=== PATIENT | female | born 1970 ===

== ENCOUNTER 2017-11-10 17:45 | Emergency (ER) | payer MEDICAID, SELFPAY ==
[2017-11-10 17:45] VITALS: BMI 31.2
[2017-11-10 18:15] VITALS: O2SAT 100
--- NOTE | 2017-11-10 18:45 | ED PDOC ---
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 Patients admits to 3 similar episodes in the past few months that resolved spontaneously. Pain is worse when patient presses down on her chest and better with rest. Chest tightness is intermittent and she has not tried any medications for her symptoms. She also admits to urinary frequency. She denies chest pain, shortness of breath, fevers, chills, nausea, vomiting, hematuria, burning on urination, recent sickness, recent travel, numbness or tingling, back pain, abdominal pain and melena. She denies smoking and drinking history. She currently takes no medications. Translation was provided by [employer] interpretation services ([employer], [id number]). PCP is Dr. Covarrubias ([facility]) Past Medical History - Provider Review Nursing Documentation Reviewed: Yes - Infectious Disease Hx of Infectious Diseases: None - Tetanus Immunization Tetanus Immunization: Unknown - Psychiatric Hx Substance Use: No - Surgical History Hx Tubal Ligation: Yes - Anesthesia Hx Anesthesia: Yes Hx Anesthesia Reactions: No Hx Malignant Hyperthermia: No Family/Social History - Physician Review Nursing Documentation Reviewed: Yes Family/Social History: Unknown Family HX Smoking Status: Never Smoked Hx Alcohol Use: No Hx Substance Use: No Allergies/Home Meds Allergies/Adverse Reactions: Allergies No Known Allergies Allergy (Verified 11/10/17 18:12) Review of Systems - Physician Review All systems were reviewed & negative as marked: Yes - Review of Systems Constitutional: Normal. absent: Fevers Eyes: Normal. absent: Vision Changes ENT: Normal. absent: Hearing Changes Respiratory: Normal. absent: SOB, Cough Cardiovascular: Other (admits to chest tightness). absent: Chest Pain, Palpitations, Edema, Calf Pain, Syncope Gastrointestinal: Normal. absent: Abdominal Pain, Constipation, Diarrhea, Nausea, Vomiting, Hematochezia, Hematemesis Genitourinary Female: Frequency. absent: Dysuria, Hematuria Musculoskeletal: Normal. absent: Back Pain, Joint Swelling Skin: Normal Neurological: Normal. absent: Headache Psychiatric: Normal Physical Exam Vital Signs Reviewed: Yes Temperature: Afebrile Blood Pressure: Normal Pulse: Regular Respiratory Rate: Normal Appearance: Positive for: Well-Appearing, Non-Toxic, Comfortable Pain Distress: None Mental Status: Positive for: Alert and Oriented X 3 - Systems Exam Head: Present: Atraumatic, Normocephalic Pupils: Present: PERRL Extroacular Muscles: Present: EOMI Conjunctiva: Present: Normal Mouth: Present: Moist Mucous Membranes Neck: Present: Normal Range of Motion Respiratory/Chest: Present: Clear to Auscultation, Good Air Exchange. No: Respiratory Distress, Accessory Muscle Use Cardiovascular: Present: Regular Rate and Rhythm, Normal S1, S2. No: Murmurs Abdomen: No: Tenderness, Distention, Peritoneal Signs, Rebound, Guarding Back: Present: Normal Inspection Upper Extremity: Present: Normal Inspection, NORMAL PULSES. No: Cyanosis, Edema , Swelling, Erythema Lower Extremity: Present: Normal Inspection, NORMAL PULSES, Normal ROM. No: Edema, CALF TENDERNESS, Cyanosis, Tierra's Sign, Tenderness, Swelling, Erythema Neurological: Present: GCS=15, CN II-XII Intact, Speech Normal, Motor Func Grossly Intact, Normal Sensory Function Skin: Present: Warm, Dry, Normal Color. No: Rashes Psychiatric: Present: Alert, Oriented x 3, Normal Insight, Normal Concentration Vital Signs Temp Pulse Resp BP Pulse Ox 11/10/17 22:06 95 H 18 127/64 100 11/10/17 20:30 88 14 150/88 99 11/10/17 19:35 98.2 F 74 16 135/88 100 11/10/17 17:45 98.2 F 88 18 130/73 100 Medical Decision Making ED Course and Treatment: 11/10/17 19:21 A 47 year old female who presents to the emergency room today for a complain of chest discomfort which she describes as tightness. In agreement with resident note, which includes further HPI details. Patient was seen and evaluated with resident, came up with plan and treatment together. 11/10/17 20:39 Seen and examined with the resident. Her history and physical exam reveals a [place]-speaking woman complaining of intermittent chest discomfort today. No dyspnea. No diaphoresis. No dizziness. No nausea. No trauma. Her exam is unremarkable. (Tolerico,Charles) 11/10/17 18:46 Impression: This is a 47 year old female with PMH of gastritis presenting to the ER for chest tightness and cold feet that began today afternoon. Differential not limited to: angina vs UTI vs dehydration vs pericarditis vs DVT vs PE vs paroxysmal atrial fibrillation Plan: -blood work, troponin -Chest xray -d dimer, PT/PTT -U/A, culture - Progress: 11/10/17 18:51 Patient is resting comfortably, vitals are stable and afebrile. 325mg ASA givin. 11/10/17 19:12 EKG= rate of 87bpmm sinus rhythm with premature atrial complexes. MD of 144ms and QRS of 76ms. 11/10/17 20:59 Patient reports symptoms are resolved and has no current symptoms or complaints. Chest Xray: no active disease 11/10/17 22:35 Troponin is negative x2. Patient verbalizes agreement with discharge and will followup with PMD within one week. (Rosario Brady) - Lab Interpretations Lab Results: 11/10/17 18:35 11/10/17 18:35 Lab Results 11/10/17 21:52: Troponin I < 0.01 11/10/17 19:08: Urine Color Straw, Urine Appearance Clear, Urine pH 6.5, Ur Specific [place] <= 1.005, Urine Protein Negative, Urine Glucose (UA) Negative, Urine Ketones Negative, Urine Blood Trace-intact H, Urine Nitrate Negative, Urine Bilirubin Negative, Urine Urobilinogen 0.2, Ur Leukocyte Esterase Trace H , Urine RBC 0 - 2, Urine WBC 0 - 2, Ur Epithelial Cells 3 - 4, Urine Bacteria Trace, Urine HCG, Qual Negative 11/10/17 18:35: Sodium 141, Potassium 3.6, Chloride 104, Carbon Dioxide 24, Anion Gap 17, BUN 10, Creatinine 0.7, Est GFR ( Amer) > 60, Est GFR (Non- Af Amer) > 60, Random Glucose 96, Calcium 9.6, Total Bilirubin 0.9, AST 19, ALT 24, Alkaline Phosphatase 68, Troponin I < 0.01, Total Protein 8.2, Albumin 4.9 H , Globulin 3.3, Albumin/Globulin Ratio 1.5 11/10/17 18:35: PT 11.7, INR 1.03, APTT 26.8, D-Dimer, Quantitative < 200 11/10/17 18:35: WBC 10.8, RBC 4.49, Hgb 14.3, Hct 39.9, MCV 88.9, MCH 31.8, MCHC 35.8, RDW 12.3, Plt Count 275, MPV 10.4, Gran % 74.3 H, Lymph % (Auto) 20.7 L, [place] % (Auto) 4.7, Eos % (Auto) 0.1 L, Baso % (Auto) 0.2, Gran # 7.99 H , Lymph # (Auto) 2.2, [place] # (Auto) 0.5, Eos # (Auto) 0.0, Baso # (Auto) 0.02 - RAD Interpretation Radiology Orders: 11/10/17 18:32 CHEST PORTABLE [RAD] Stat - Medication Orders Current Medication Orders: Discontinued Medications Aspirin (Aspirin) 325 mg PO STAT STA Stop: 11/10/17 18:33 Last Admin: 11/10/17 18:41 Dose: 325 mg Ketorolac Tromethamine (Toradol) 15 mg IVP STAT STA Stop: 11/10/17 19:39 Last Admin: 11/10/17 19:49 Dose: Not Given Non-Admin Reason: Patient Refused MAR Pain Assessment Document 11/10/17 19:49 ROSANGELA (Rec: 11/10/17 19:50 RG [id number]) Pain Reassessment Is this a pain reassessment? Yes Sleep Is patient sleeping during reassessment? 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 MD/DO has examined the patient and agrees with the treatment plan. Disposition/Present on Arrival - Present on Arrival Any Indicators Present on Arrival: No History of DVT/PE: No History of Uncontrolled Diabetes: No Urinary Catheter: No History of Decub. Ulcer: No History Surgical Site Infection Following: None - Disposition Have Diagnosis and Disposition been Completed?: Yes Disposition Time: 22:00 Patient Plan: Discharge - Disposition Diagnosis: Chest pain Patient Problems: Current Active Problems Problem Status Onset Chest pain Acute Condition: IMPROVED Discharge Instructions (ExitCare): Chest Pain (ED) Additional Instructions: MYRTLE MCKINNEY, thank you for letting us take care of you today. Your provider was and you were treated for CHEST PAIN. The emergency medical care you received today was directed at your acute symptoms. If you were prescribed any medication, please fill it and take as directed. It may take several days for your symptoms to resolve. Return to the Emergency Department if your symptoms worsen, do not improve, or if you have any other problems. Please contact your doctor or call one of the physicians/clinics you have been referred to that are listed on the Patient Visit Information form that is included in your discharge packet. Bring any paperwork you were given at discharge with you along with any medications you are taking to your follow up visit. Our treatment cannot replace ongoing medical care by a primary care provider outside of the emergency department. Thank you for allowing the [facility] team to be part of your care today. Patient to follow up with PCP within one week. Please return to ED for any worsening symptoms including worsening chest pain. Prescriptions: Naproxen 500 mg PO Q8 PRN 7 Days #14 tab PRN Reason: Pain, Moderate (4-7) Referrals: Kathy Covarrubias DO [Primary Care Provider] - Follow up with primary
[2017-11-10 19:10] LABS: BASO # 0.02 K/mm3 (0.0-2.0); BASO % 0.2 % (0.0-3.0); D DIMER < 200 ng/mL (0-243); EOS % 0.1 % (1.5-5.0); GRAN # 7.99 (1.4-6.5); GRAN % 74.3 % (50.0-68.0); HEMOGLOBIN 14.3 g/dL (12.0-16.0); INR 1.03 (0.93-1.08); LYMPH # 2.2 (1.2-3.4); LYMPH % 20.7 % (22.0-35.0); MEAN CELL VOLUME 88.9 fl (80.0-105.0); MEAN CORPUSCULAR HEMOGLOBIN 31.8 pg (25.0-35.0); MEAN CORPUSCULAR HGB CONC 35.8 g/dl (31.0-37.0); MEAN PLATELET VOLUME 10.4 fl (7.0-11.0); MONO # 0.5 (0.1-0.6); MONO % 4.7 % (1.0-6.0); PARTIAL THROMBOPLASTIN TIME 26.8 Seconds (25.1-36.5); PROTHROMBIN TIME 11.7 SECONDS (9.4-12.5); RBC 4.49 10^6/uL (3.5-6.1); RED CELL DISTRIBUTION WIDTH 12.3 % (11.5-14.5); WHITE BLOOD COUNT 10.8 10^3/ul (4.5-11.0)
[2017-11-10 19:14] LABS: PH,URINE 6.5 (4.7-8.0); URINE APPEARANCE CLEAR (CLEAR); URINE BILIRUBIN NEGATIVE (NEGATIVE); URINE BLOOD TRACE-INTACT (NEGATIVE); URINE COLOR STRAW (YELLOW); URINE GLUCOSE (UA) NEGATIVE (NEGATIVE); URINE LEUKOCYTE ESTERASE TRACE Leu/uL (NEGATIVE); URINE PROTEIN NEGATIVE mg/dL (<30 mg/dL); URINE UROBILINOGEN 0.2 E.U./dL (<1 E.U./dL)
[2017-11-10 19:15] LABS: ALB/GLOB RATIO 1.5 (1.1-1.8); ALBUMIN 4.9 g/dL (3.0-4.8); ALT/SGPT 24 U/L (7-56); AST/SGOT 19 U/L (14-36); BLOOD UREA NITROGEN 10 mg/dL (7-21); CALCIUM 9.6 mg/dL (8.4-10.5); GFR AFRICAN-AMERICAN > 60; GFR NON-AFRICAN AMERICAN > 60
[2017-11-10 19:17] LABS: HCG,QUALITATIVE URINE NEGATIVE (NEGATIVE)
[2017-11-10 19:18] LABS: URINE BACTERIA TRACE (NEG); URINE RBC 0 - 2 /hpf (0-2); URINE WBC 0 - 2 /hpf (0-6)
[2017-11-10 19:26] LABS: TROPONIN I < 0.01 ng/mL
[2017-11-10 22:08] VITALS: BP 127/64; RESP 18
[2017-11-10 22:55] VITALS: PULSE 85; TEMP 98.3
--- NOTE | 2017-11-11 09:10 | RAD ---
Date of service: 11/10/2017 HISTORY: chest tightness COMPARISON: None. FINDINGS: LUNGS: No active pulmonary disease. PLEURA: No significant pleural effusion identified, no pneumothorax apparent. CARDIOVASCULAR: Normal. OSSEOUS STRUCTURES: No significant abnormalities. VISUALIZED UPPER ABDOMEN: Normal. OTHER FINDINGS: None. IMPRESSION: No active disease.
--- NOTE | 2017-11-11 20:34 | CARD ---
APPROVED REPORT Date of service: 11/10/2017 EKG Measurement Heart [id number] <Conclusion> Sinus rhythm with premature atrial complexes Prolonged QT Abnormal ECG
== END 2017-11-10 22:55 | disposition home or self-care (01) ==
LOC: ED 17:45
DX: R07.9 Chest pain, unspecified (principal)